=== PATIENT | male | born 1975 | race African-American/Black ===

== ENCOUNTER 2023-02-27 12:12 | Emergency (ER) | payer OTHER ==
[~2023-02-27] VITALS: Ht 177.8 cm; Wt 81.8 kg
[2023-02-27 12:14] VITALS: BP 130/85; PULSE 64; RESP 18; TEMP 97.9
== END 2023-02-27 15:17 | disposition left against medical advice (07) ==
LOC: EMS 12:12
DX: M25.511 Pain in right shoulder (principal); M54.9 Dorsalgia, unspecified; Z53.21 Procedure and treatment not carried out due to patient leaving prior to being seen by health care provider
CPT/HCPCS: 99281; Z7502